=== PATIENT | female | born 1985 | race Two or more races ===

== ENCOUNTER 2016-12-05 06:25 | Inpatient (IN) | payer BC ==
[~2016-12-05 06:25] MED LIST: Citric Acid/Sodium Citrate Solution 30 ML Cup PO ONE; Lactated Ringers 1,000 ML IV SCH; Metoclopramide 10 MG/2 ML SDV IVPUSH ONE; Sodium Chloride 0.9% 10 ML Syringe FLUSH PRN
[2016-12-05] MEDS ORDERED: Diphtheria,Pertussis(Acell),Tetanus Vaccine 0.5 ML SDV inactive IM ONE (06:46)
[2016-12-05] MEDS ORDERED: Bupivacaine 0.5% 30 ML SDV ONE (06:47)
[2016-12-05] MEDS ORDERED: Morphine PF 10 MG/10 ML SDV ONE (07:02)
--- NOTE | 2016-12-05 07:16 | PCM.PREANE ---
Preanesthetic Assessment - ANESTHESIA/TRANSFUSION/FAMILY HX Anesthesia/Transfusion History: No Prior Transfusion(s), Prior Anesthesia (no problems ) - REVIEW OF SYSTEMS Constitutional: Reports: no symptoms CARVER HAND: Reports: no symptoms Respiratory: Reports: no symptoms Cardiovascular: Reports: no symptoms GI: Reports: vomiting (during , prescribed medication ) Other: Reports: none - PHYSICAL ASSESSMENT HR: 92 O2 Sat by Pulse Oximetry: 100 BP: 114/71 Temp: 36.6 C Vital Signs: Last Vital Signs Temp 36.6 C 12/05/16 06:43 Pulse 92 12/05/16 06:43 Resp BP 114/71 12/05/16 06:43 Pulse Ox 100 12/05/16 06:43 Height: 1.57 m Weight: 75.432 kg NPO Status Date: 12/04/16 NPO Status Time: 19:00 ASA Class: 2 Mental Status: alert & oriented x3 Airway Class: Mallampati = 1 Dentition: Reports: normal dentition Thyro-Mental Finger Breadths: 3 Mouth Opening Finger Breadths: 5 ROM/Head Extension: full Respiratory Status: lungs clear to auscultation bilaterally Cardiovascular Status: regular rate & rhythm, normal S1, S2, no murmur, blood pressure WNL - LAB Values: Laboratory Last Values WBC 9.72 K/mm3 (3.98-10.04) 12/05/16 06:46 RBC 4.34 M/mm3 (3.98-5.22) 12/05/16 06:46 Hgb 11.8 gm/L (11.2-15.7) 12/05/16 06:46 Hct 35.5 % (34.1-44.9) 12/05/16 06:46 MCV 81.8 fl (79.4-94.8) 12/05/16 06:46 MCH 27.2 pg (25.6-32.2) 12/05/16 06:46 MCHC 33.2 g/dl (32.2-35.5) 12/05/16 06:46 RDW Std Deviation 42.4 fL (36.4-46.3) 12/05/16 06:46 Plt Count 287 K/mm3 (182-369) 12/05/16 06:46 MPV 10.4 fl (9.4-12.3) 12/05/16 06:46 Neut % (Auto) 65.6 % (34.0-71.1) 12/05/16 06:46 Lymph % (Auto) 25.5 % (19.3-51.7) 12/05/16 06:46 Reynolds % (Auto) 7.6 % (4.7-12.5) 12/05/16 06:46 Eos % (Auto) 0.8 (0.7-5.8) 12/05/16 06:46 Baso % (Auto) 0.2 % (0.1-1.2) 12/05/16 06:46 Neut # 6.37 K/mm3 (1.56-6.13) H 12/05/16 06:46 Lymph # 2.48 K/mm3 (1.18-3.74) 12/05/16 06:46 Reynolds # 0.74 K/mm3 (0.24-0.36) H 12/05/16 06:46 Eos # 0.08 K/mm3 (0.04-0.36) 12/05/16 06:46 Baso # 0.02 K/mm3 (0.01-0.08) 12/05/16 06:46 - ALLERGIES Allergies/Adverse Reactions: Allergies Allergy/AdvReac Type Severity Reaction Status Date / Time No Known Allergies Allergy Verified 12/04/16 21:10 - BLOOD Blood Available: Yes Product(s) Available: PRBC - ANESTHESIA PLAN Preop Beta Vickie: No Anesthesia Type Planned: spinal - ACKNOWLEDGEMENTS Pt an appropriate candidate for the planned anesthesia: Yes Alternatives and risks of anesthesia discussed w pt/guardian: Yes Pt/Guardian understands and agree with anesthesia plan: Yes PreAnesthesia Questionnaire HEENT History: Reports: None Cardiovascular History: Reports: None Respiratory History: Reports: None Gastrointestinal History: Reports: GERD Genitourinary History: Reports: None : 2 Para: 1 Musculoskeletal History: Reports: None Neurological History: Reports: None Endocrine/Metabolic History: Reports: None Hematologic History: Reports: None Immunologic History: Reports: None - SUBSTANCE USE Smoking Status *Q: Never Smoker Recreational Drug Use History: No - HOME MEDS Home Medications: Home Meds PNV95/Ferrous Fumarate/FA [ Tablet] 1 each PO DAILY 12/05/16 [History] - CURRENT (IN HOUSE) MEDS Current Meds: Current Medications Lactated Ringer's (Ringers, Lactated) 1,000 mls @ 125 mls/hr IV ASDIRECTED [facility] Last Admin: 12/05/16 06:57 Dose: 125 mls/hr Oxytocin 20 unit/ Lactated (Ringer's) 1,002 mls @ 500 mls/hr IV ASDIRECTED [facility] PRN Reason: Protocol Cefazolin Sodium/Dextrose 2 gm (/ Premix) 50 mls @ 100 mls/hr IV ONETIME ONE Stop: 12/05/16 07:59 Sodium Chloride (Saline Flush) 10 ml FLUSH ASDIRECTED PRN PRN Reason: Keep Vein Open Discontinued Medications Bupivacaine HCl (Marcaine 0.5%) Confirm Administered Dose 30 ml .ROUTE .STK-MED ONE Stop: 12/05/16 06:48 Citric Acid/Sodium Citrate (Bicitra Solution) 30 ml PO ONETIME ONE Stop: 12/05/16 06:01 Last Admin: 12/05/16 06:57 Dose: 30 ml Diphtheria/Tetanus/Acell Pertussis (Boostrix) 0.5 ml IM .ONCE ONE Stop: 12/05/16 06:47 Metoclopramide HCl (Reglan) 10 mg IVPUSH ONETIME ONE Stop: 12/05/16 06:01 Last Admin: 12/05/16 06:57 Dose: 10 mg Morphine Sulfate (Duramorph Pf) Confirm Administered Dose 10 mg .ROUTE .STK-MED ONE Stop: 12/05/16 07:03
--- NOTE | 2016-12-05 07:16 | PCM.LDHP ---
L&D History of Present Illness - General Date of Service: 12/05/16 Admit Problem/Dx: Patient Status Order with Admit Dx/Problem 12/05/16 05:30 Patient Status [ADT] Routine Patient Status: Admit to Inpatient Admission Diagnosis/Problem: section Reason for Admit: Scheduled repeat Section Nurse Unit Type: Labor and Delivery Admitting Physician: Koby Gunter Attending Physician: Koby Gunter Admission Diagnosis/Problem Admission Diagnosis/Problem section Source of Information: Patient History Limitations: Reports: No limitations - History of Present Illness Introduction:: 31 y/o LISE 12/10/2016 at EGA 39w2d EGA GBS positive for repeat CS scheduled for Sunday12/05/2016. See record Pain Score: 0 Improves with: Reports: None Worsens with: Reports: None Associated Symptoms: Reports: N - Related Data Allergies/Adverse Reactions: Allergies Allergy/AdvReac Type Severity Reaction Status Date / Time No Known Allergies Allergy Verified 12/04/16 21:10 Home Medications: Home Meds PNV95/Ferrous Fumarate/FA [ Tablet] 1 each PO DAILY 12/05/16 [History] Past Medical History : 2 Para: 1 (1001) LMP (Approximate): Social & Family History - Tobacco Use Smoking Status *Q: Never Smoker - Caffeine Use Caffeine Use: Reports: None - Recreational Drug Use Recreational Drug Use: No H&P Review of Systems - Review of Systems: Review Of Systems: See Below General: Reports: no symptoms HEENT: Reports: no symptoms Pulmonary: Reports: no symptoms Cardiovascular: Reports: no symptoms Gastrointestinal: Reports: No symptoms Genitourinary: Reports: no symptoms Musculoskeletal: Reports: no symptoms Skin: Reports: no symptoms Psychiatric: Reports: no symptoms Neurological: Reports: no symptoms Hematologic/Lymphatic: Reports: no symptoms Immunologic: Reports: no symptoms L&D Exam - Exam Exam: See Below - Vital Signs Vital Signs: Last Vital Signs Temp 97.9 F 12/05/16 06:43 Pulse 92 12/05/16 06:43 Resp BP 114/71 12/05/16 06:43 Pulse Ox 100 12/05/16 06:43 Weight: 166 lb 4.8 oz - Exam General: alert, oriented HEENT: Mucosa moist & pink Neck: supple, trachea midline Lungs: Clear to auscultation, Normal respiratory effort Cardiovascular: regular rate, regular rhythm Abdomen: normal bowel sounds, soft Genitourinary: Normal external exam Extremities: normal inspection Skin: warm, dry, intact Neurological: reflexes equal bilateral Psychiatric: alert, normal affect, normal mood - Patient Data Lab Results last 24 hrs: Laboratory Results - last 24 hr 12/05/16 Range/Units 06:46 WBC 9.72 (3.98-10.04) K/mm3 RBC 4.34 (3.98-5.22) M/mm3 Hgb 11.8 (11.2-15.7) gm/L Hct 35.5 (34.1-44.9) % MCV 81.8 (79.4-94.8) fl MCH 27.2 (25.6-32.2) pg MCHC 33.2 (32.2-35.5) g/dl RDW Std Deviation 42.4 (36.4-46.3) fL Plt Count 287 (182-369) K/mm3 MPV 10.4 (9.4-12.3) fl Neut % (Auto) 65.6 (34.0-71.1) % Lymph % (Auto) 25.5 (19.3-51.7) % Glades % (Auto) 7.6 (4.7-12.5) % Eos % (Auto) 0.8 (0.7-5.8) Baso % (Auto) 0.2 (0.1-1.2) % Neut # 6.37 H (1.56-6.13) K/mm3 Lymph # 2.48 (1.18-3.74) K/mm3 Glades # 0.74 H (0.24-0.36) K/mm3 Eos # 0.08 (0.04-0.36) K/mm3 Baso # 0.02 (0.01-0.08) K/mm3 Result Diagrams: 12/05/16 06:46 - Problem List (1) 39 weeks gestation of SNOMED Code(s): 77174912 ICD Code: Z3A.39 - 39 WEEKS GESTATION OF Status: Acute Current Visit: Yes (2) Encounter for maternal care for low transverse scar from previous delivery SNOMED Code(s): 958783502, 124208443 ICD Code: O34.211 - MATERN CARE FOR LOW TRANSVERSE SCAR FROM PREV DEL Status: Acute Current Visit: Yes (3) Carrier of group B Streptococcus SNOMED Code(s): 2249981012499 ICD Code: Z22.330 - CARRIER OF GROUP B STREPTOCOCCUS Status: Acute Current Visit: Yes Problem List Initiated/Reviewed/Updated: No Orders Last 24hrs: Active Orders 24 hr Category Date Time Status Patient Status [ADT] Routine ADT 12/05/16 05:30 Active Communication Order [RC] ROUTINE Care 12/05/16 05:30 Active Heart Tones [RC] PER UNIT ROUTINE Care 12/05/16 05:30 Active Peripheral IV Care [RC] Q2HR Care 12/05/16 05:30 Active Vaccines to be Administered [RC] PER UNIT ROUTINE Care 12/05/16 06:46 Active TYPE AND SCREEN [BBK] Timed Lab 12/05/16 06:46 Received Lactated Ringers [Ringers, Lactated] 1,000 ml Med 12/05/16 05:30 Active IV ASDIRECTED Oxytocin [Pitocin] 20 unit Med 12/05/16 07:30 Active Lactated Ringers [Ringers, Lactated] 1,000 ml IV ASDIRECTED Sodium Chloride 0.9% [Saline Flush] Med 12/05/16 05:30 Active 10 ml FLUSH ASDIRECTED PRN ceFAZolin [Ancef] 2 gm Med 12/05/16 07:30 Active Premix Bag 1 bag IV ONETIME Peripheral IV Insertion Adult [OM.PC] Routine Oth 12/05/16 05:30 Ordered Schedule Procedure [COMM] Per Unit Routine Oth 12/05/16 05:30 Ordered Resuscitation Status Routine Resus Stat 12/04/16 21:10 Ordered Medication Orders Lactated Ringer's (Ringers, Lactated) 1,000 mls @ 125 mls/hr IV ASDIRECTED [facility] Last Admin: 12/05/16 06:57 Dose: 125 mls/hr Oxytocin 20 unit/ Lactated (Ringer's) 1,002 mls @ 500 mls/hr IV ASDIRECTED [facility] PRN Reason: Protocol Cefazolin Sodium/Dextrose 2 gm (/ Premix) 50 mls @ 100 mls/hr IV ONETIME ONE Stop: 12/05/16 07:59 Sodium Chloride (Saline Flush) 10 ml FLUSH ASDIRECTED PRN PRN Reason: Keep Vein Open Assessment/Plan Comment:: Plan repeat CS
[2016-12-05] MEDS ORDERED: ceFAZolin 2 GM in Premix Bag 1 BAG IV ONE (07:30)
[2016-12-05] MEDS ORDERED: fentaNYL 100 MCG/2 ML SDV ONE (08:12)
[2016-12-05] MEDS ORDERED: Lactated Ringers 1,000 ML ONE ×2 (08:33→08:34)
[2016-12-05] MEDS ORDERED: Oxytocin 10 Units/1 ML SDV ONE ×2 (08:34)
[2016-12-05] MEDS ORDERED: Ketorolac 30 MG/ML SDV ONE (08:40)
--- NOTE | 2016-12-05 08:40 | PCM.OPNOTE ---
- General Post-Op/Procedure Note Date of Surgery/Procedure: 12/05/16 Operative Procedure(s): Repeat section Pre Op Diagnosis: 39 weeks gestation, previous section, group B strep positive Post-Op Diagnosis: Same Anesthesia Technique: Spinal Primary Surgeon: Koby Gunter Secondary Surgeon: Cali Lin Anesthesia Provider: Coral Reece Fluid Replacement, Intraop: 1,500 Output, Urine Amount: 125 EBL in mLs: 500 Drain/Tube Comments:: Ross Complications: None Condition: Good Free Text/Narrative:: Patient was transported to operating room #1, placed under spinal anesthesia in the supine position with wedge under the right hip and right flank. Prepared and draped in sterile fashion. Timeout performed confirming name, date of , and procedure as section. Patient had SCDs in place. Packing prior surgery. Ancef 2 g intravenously prior to surgery. Level of anesthesia was confirmed and 20 mL of 0.5% Marcaine injected in the area of the planned incision. Incision made in the area of the old transverse incision from her previous section. Carried sharp section to into the anterior fascia. Peritoneal cavity was entered without difficulty. Bladder flap created pushed caudad and a low segment transverse performed, delivering a male live born at 0803 hours on daily , Apgars 8/9. At one and 5 minutes, weight 8 pounds, 13, Dr. Lopes . Care Navigator in attendance, and cared for the . Cord blood collected from three-vessel cord placenta removed manually, and the cavity inspected, and remnants of membranes removed. Sponge, needle, pack, and splint sharp count correct, times one. The uterine cavity, closed with 2 layers, first layer running, locking suture of 0 Monocryl. Second layer are long, became suture of 0 Monocryl. Hemostasis was normal. Both tubes and ovaries normal. Clots cleaned from the gutters and cul-de-sac. Uterus replaced into the abdominal cavity. Sponge, needle, pack, and splint sharp count correct, x2 in the abdominal cavity was closed #1 PDS for the anterior fascia. Multiple, interrupted 0 Monocryl sutures utilized to approximate the subcutaneous tissue. After irrigation was performed, and the skin was closed with 3-0 Monocryl. Ramirez needle, subcuticular suture and Preneo Dermabond applied. Clots cleaned from the vagina, and patient transported post anesthesia care unit in satisfactory condition. No blood transfusion, required
[2016-12-05] MEDS ORDERED: diphenhydrAMINE 50 MG/ML SDV IVPUSH PRN ×2 (08:51→10:12)
[2016-12-05] MEDS ORDERED: Ondansetron 4 MG/2 ML SDV IVPUSH PRN (08:51)
[2016-12-05] MEDS ORDERED: Meperidine PF 50 MG/ML Syringe IVPUSH PRN (08:51)
--- NOTE | 2016-12-05 08:54 | PCM.POSTAN ---
POST ANESTHESIA ASSESSMENT - MENTAL STATUS Mental Status: alert - VITAL SIGNS Pulse Rate: 78 SaO2: 98 Resp Rate: 21 Blood Pressure: 96/49 Temperature: 99.1 C - RESPIRATORY Respiratory Status: respiratory rate WNL, airway patent, O2 saturation stable - CARDIOVASCULAR CV Status: pulse rate WNL, blood pressure stable - GASTROINTESTINAL GI Status: no symptoms - PAIN Pain Score: 0 (not complaining of any pain when asked ) - POST OP HYDRATION Hydration Status: adequate & stable
[2016-12-05] MEDS ORDERED: Witch Hazel Medicated Pads 100/Jar TOP PRN (10:12)
[2016-12-05] MEDS ORDERED: Docusate Sodium 100 MG Cap PO PRN (10:12)
[2016-12-05] MEDS ORDERED: Naloxone 0.4 MG/ML SDV IVPUSH PRN (10:12)
[2016-12-05] MEDS ORDERED: Lanolin 100% Cream 7 GM Tube TOP PRN (10:12)
[2016-12-05] MEDS ORDERED: Acetaminophen 325 MG Tab PO PRN (10:12)
[2016-12-05] MEDS ORDERED: Ondansetron 4 MG Tab.DIS PO PRN (10:12)
[2016-12-05] MEDS ORDERED: ePHEDrine 50 MG/ML SDV IVPUSH PRN (10:12)
[2016-12-05] MEDS ORDERED: Dextrose 5%-Lactated Ringers 1,000 ML IV SCH (10:12)
[2016-12-05] MEDS ORDERED: Sodium Chloride 0.9% 10 ML Syringe FLUSH PRN (10:12)
[2016-12-05] MEDS ORDERED: Ondansetron 4 MG/2 ML SDV IV PRN (10:12)
[2016-12-05] MEDS: Acetaminophen/oxyCODONE 325-5 MG Tab PO PRN ×2 (11:06→20:14)
[2016-12-05] MEDS ORDERED: Misoprostol 200 MCG Tab PO ONE (11:39)
[2016-12-05] MEDS ORDERED: Misoprostol 200 MCG Tab ONE (11:40)
--- NOTE | 2016-12-05 12:06 | PCM.SN ---
- Free Text/Narrative Note: Bleeding increased and prescribed Cytotec 200 mcg x2 buccal. Bleeding better. Percocet helped with pain Vitals stable.
[2016-12-05] MEDS: Dextrose 5%-0.45% NaCl 1,000 ML IV SCH ×2 (15:58→21:18)
[2016-12-05] MEDS: Ketorolac 30 MG/ML SDV IVPUSH SCH ×2 (15:59→21:19)
[2016-12-06] MEDS: Ketorolac 30 MG/ML SDV IVPUSH SCH (03:12)
[2016-12-06] MEDS: Dextrose 5%-0.45% NaCl 1,000 ML IV SCH (04:46)
[2016-12-06] MEDS: Acetaminophen/oxyCODONE 325-5 MG Tab PO PRN ×3 (06:15→20:26)
--- NOTE | 2016-12-06 08:03 | PCM48HPAN ---
Post Anesthesia Note - EVALUATION WITHIN 48HRS OF ANESTHETIC Vital Signs in Normal Range: Yes Patient Participated in Evaluation: No (patient sleeping, talked with S/O and RN ) Respiratory Function Stable: Yes Airway Patent: Yes Cardiovascular Function Stable: Yes Hydration Status Stable: Yes Pain Control Satisfactory: Yes Nausea and Vomiting Control Satisfactory: Yes Mental Status Recovered: Yes - COMMENTS/OBSERVATIONS Free Text/Narrative:: patient non-vietnamese speaking
--- NOTE | 2016-12-06 08:43 | PCM.PN ---
- General Info Date of Service: 12/06/16 Functional Status: Reports: pain controlled - Review of Systems General: Reports: no symptoms HEENT: Reports: no symptoms Pulmonary: Reports: no symptoms Cardiovascular: Reports: no symptoms Gastrointestinal: Reports: No symptoms Genitourinary: Reports: no symptoms Musculoskeletal: Reports: no symptoms Skin: Reports: no symptoms Neurological: Reports: no symptoms Psychiatric: Reports: no symptoms - Patient Data Vitals - most recent: Last Vital Signs Temp 98.6 F 12/06/16 08:03 Pulse 68 12/06/16 08:03 Resp 16 12/06/16 08:03 BP 90/54 L 12/06/16 08:03 Pulse Ox 97 12/06/16 08:03 Weight - most recent: 166 lb 4.8 oz I&O - last 24 hours: Intake & Output 12/05/16 12/06/16 12/06/16 22:59 06:59 14:59 Intake Total 1060 2850 Output Total 800 900 Balance 260 1950 Lab Results last 24 hrs: Laboratory Results - last 24 hr 12/06/16 Range/Units 06:09 WBC 9.22 (3.98-10.04) K/mm3 RBC 2.96 L (3.98-5.22) M/mm3 Hgb 8.1 L (11.2-15.7) gm/L Hct 24.9 L (34.1-44.9) % MCV 84.1 (79.4-94.8) fl MCH 27.4 (25.6-32.2) pg MCHC 32.5 (32.2-35.5) g/dl RDW Std Deviation 42.5 (36.4-46.3) fL Plt Count 229 (182-369) K/mm3 MPV 9.8 (9.4-12.3) fl Neut % (Auto) 63.5 (34.0-71.1) % Lymph % (Auto) 26.0 (19.3-51.7) % Turner % (Auto) 8.8 (4.7-12.5) % Eos % (Auto) 1.3 (0.7-5.8) Baso % (Auto) 0.2 (0.1-1.2) % Neut # 5.85 (1.56-6.13) K/mm3 Lymph # 2.40 (1.18-3.74) K/mm3 Turner # 0.81 H (0.24-0.36) K/mm3 Eos # 0.12 (0.04-0.36) K/mm3 Baso # 0.02 (0.01-0.08) K/mm3 Med Orders - Current: Current Medications Acetaminophen (Tylenol) 650 mg PO Q4H PRN PRN Reason: mild pain or fever Diphenhydramine HCl (Benadryl) 25 mg IVPUSH Q6H PRN PRN Reason: Itching or Nausea Docusate Sodium (Colace) 100 mg PO Q12H PRN PRN Reason: Constipation Emollient Ointment (Lansinoh Hpa) 0 gm TOP ASDIRECTED PRN PRN Reason: Sore Nipples Ephedrine Sulfate (Ephedrine Sulfate) 5 mg IVPUSH SEECOMMENT PRN PRN Reason: Other Dextrose/Sodium Chloride (Dextrose 5%-1/2 Ns) 1,000 mls @ 125 mls/hr IV ASDIRECTED [facility] Last Admin: 12/06/16 04:46 Dose: 125 mls/hr Ibuprofen (Motrin) 600 mg PO Q6H PRN PRN Reason: mild pain or fever Meperidine HCl (Demerol) 12.5 mg IVPUSH ONETIME PRN PRN Reason: shivering Stop: 12/06/16 08:52 Naloxone HCl (Narcan) 0.1 mg IVPUSH SEECOMMENT PRN PRN Reason: Respiratory Depression Ondansetron HCl (Zofran) 4 mg IV Q8H PRN PRN Reason: Nausea/Vomiting Last Admin: 12/05/16 13:07 Dose: 4 mg Ondansetron HCl (Zofran Odt) 4 mg PO Q4H PRN PRN Reason: Nausea/Vomiting Oxycodone/Acetaminophen (Percocet 325-5 Mg) 2 tab PO Q4H PRN PRN Reason: Pain (moderate 4-6) Last Admin: 12/06/16 06:15 Dose: 2 tab Sodium Chloride (Saline Flush) 10 ml FLUSH ASDIRECTED PRN PRN Reason: Keep Vein Open Witch Elvi (Tucks) 1 pad TOP ASDIRECTED PRN PRN Reason: Perineal Comfort Measure Discontinued Medications Bupivacaine HCl (Marcaine 0.5%) Confirm Administered Dose 30 ml .ROUTE .[facility] ONE Stop: 12/05/16 06:48 Last Admin: 12/05/16 07:59 Dose: 20 ml Citric Acid/Sodium Citrate (Bicitra Solution) 30 ml PO ONETIME ONE Stop: 12/05/16 06:01 Last Admin: 12/05/16 06:57 Dose: 30 ml Diphenhydramine HCl (Benadryl) 25 mg IVPUSH Q6H PRN PRN Reason: pruritis Diphtheria/Tetanus/Acell Pertussis (Boostrix) 0.5 ml IM .ONCE ONE Stop: 12/05/16 06:47 Fentanyl (Sublimaze) Confirm Administered Dose 100 mcg .ROUTE .[facility] ONE Stop: 12/05/16 08:13 Lactated Ringer's (Ringers, Lactated) 1,000 mls [facility] Admin: 12/05/16 06:57 Dose: 125 mls/hr Oxytocin 20 unit/ Lactated (Ringer's) 1,002 mls [facility] PRN Reason: Protocol Cefazolin Sodium/Dextrose 2 gm (/ Premix) 50 mls @ 100 mls/hr IV ONETIME ONE Stop: 12/05/16 07:59 Last Admin: 12/06/16 08:19 Dose: Not Given Lactated Ringer's (Ringers, Lactated) Confirm Administered Dose 1,000 mls @ as directed .ROUTE .[facility] ONE Stop: 12/05/16 08:34 Lactated Ringer's (Ringers, Lactated) Confirm Administered Dose 1,000 mls @ as directed .ROUTE .[facility]-MED ONE Stop: 12/05/16 08:35 Dextrose/Lactated Ringer's (Dextrose 5%-Lactated Ringers) 1,000 mls @ 125 mls/ hr IV ASDIRECTED [facility] Stop: 12/05/16 18:11 Last Admin: 12/05/16 11:13 Dose: 125 mls/hr Ketorolac Tromethamine (Toradol) Confirm Administered Dose 30 mg .ROUTE .[facility]- MED ONE Stop: 12/05/16 08:41 Ketorolac Tromethamine (Toradol) 30 mg IVPUSH Q6H [facility] Stop: 12/06/16 03:01 Last Admin: 12/06/16 03:12 Dose: 30 mg Metoclopramide HCl (Reglan) 10 mg IVPUSH ONETIME ONE Stop: 12/05/16 06:01 Last Admin: 12/05/16 06:57 Dose: 10 mg Misoprostol (Cytotec) 400 mcg PO ONETIME ONE Stop: 12/05/16 11:40 Last Admin: 12/05/16 11:44 Dose: 400 mcg Misoprostol (Cytotec) Confirm Administered Dose 400 mcg .ROUTE .STK-MED ONE Stop: 12/05/16 11:41 Last Admin: 12/05/16 13:08 Dose: Not Given Morphine Sulfate (Duramorph Pf) Confirm Administered Dose 10 mg .ROUTE .STK-MED ONE Stop: 12/05/16 07:03 Ondansetron HCl (Zofran) 4 mg IVPUSH ONETIME PRN PRN Reason: Nausea/Vomiting Oxytocin (Pitocin) Confirm Administered Dose 10 unit .ROUTE .STK-MED ONE Stop: 12/05/16 08:35 Oxytocin (Pitocin) Confirm Administered Dose 10 unit .ROUTE .STK-MED ONE Stop: 12/05/16 08:35 Sodium Chloride (Saline Flush) 10 ml FLUSH ASDIRECTED PRN PRN Reason: Keep Vein Open - Exam General: alert, oriented HEENT: Pupils equal, Pupils reactive, Mucous membr. moist/pink Neck: supple Lungs: Clear to auscultation, Normal respiratory effort Cardiovascular: regular rate, regular rhythm Abdomen: bowel sounds present, soft, no tenderness, no distension (Female) Exam: Normal external exam, Normal speculum exam, Normal bimanual exam Extremities: no edema Skin: warm, dry, intact Wound/Incisions: healing well Neurological: no new focal deficit Psy/Mental Status: alert, normal affect, normal mood - Problem List & Annotations (1) 39 weeks gestation of SNOMED Code(s): 14258132 Code(s): Z3A.39 - 39 WEEKS GESTATION OF Status: Acute Current Visit: Yes (2) Encounter for maternal care for low transverse scar from previous delivery SNOMED Code(s): 060932641, 572507178 Code(s): O34.211 - MATERN CARE FOR LOW TRANSVERSE SCAR FROM PREV DEL Status: Acute Current Visit: Yes (3) Carrier of group B Streptococcus SNOMED Code(s): 5286226883828 Code(s): Z22.330 - CARRIER OF GROUP B STREPTOCOCCUS Status: Acute Current Visit: Yes - Problem List Review Problem List Initiated/Reviewed/Updated: No - My Orders Last 24 Hours: My Active Orders 12/05/16 10:12 Ambulate [RC] PER UNIT ROUTINE Antiembolic Devices [RC] PER UNIT ROUTINE Communication Order [RC] PER UNIT ROUTINE Intake and Output [RC] QSHIFT May Shower [RC] PER UNIT ROUTINE Notify Provider Intake and Out [RC] ASDIRECTED RT Incentive Spirometry [RC] Q2HWA Vital Signs [RC] 04,12,20 Acetaminophen [Tylenol] 650 mg PO Q4H PRN Acetaminophen/oxyCODONE [Percocet 325-5 MG] 2 tab PO Q4H PRN Dextrose 5%-0.45% NaCl [Dextrose 5%-1/2 NS] 1,000 ml IV ASDIRECTED Docusate Sodium [Colace] 100 mg PO Q12H PRN Lanolin [Lansinoh HPA] See Dose Instructions TOP ASDIRECTED PRN Naloxone [Narcan] 0.1 mg IVPUSH SEECOMMENT PRN Ondansetron [Zofran ODT] 4 mg PO Q4H PRN Ondansetron [Zofran] 4 mg IV Q8H PRN Sodium Chloride 0.9% [Saline Flush] 10 ml FLUSH ASDIRECTED PRN Witch Elvi [Tucks] 1 pad TOP ASDIRECTED PRN diphenhydrAMINE [Benadryl] 25 mg IVPUSH Q6H PRN ePHEDrine [ePHEDrine Sulfate] 5 mg IVPUSH SEECOMMENT PRN Abdominal Binder [OM.PC] Per Unit Routine Assess Lochia [WOMSER] Per Unit Routine Assess Uterine Involution [WOMSER] Per Unit Routine Breast Pump [WOMSER] Per Unit Routine Convert IV to Saline Lock [OM.PC] Routine Medication Administration Instruction [OM.PC] Routine Peripheral IV Discontinue [OM.PC] Routine Saline Lock Insert [OM.PC] Routine Sequential Compression Device [OM.PC] Per Unit Routine 12/05/16 20:20 Oxygen Therapy Adult [Oxygen Therapy] [RC] ASDIRECTED 12/05/16 Dinner Regular Diet [DIET] 12/05/16 Lunch Clear Liquid Diet [DIET] 12/06/16 08:41 Urinary Catheter Removal [RC] Per Unit Routine 12/06/16 09:00 Ibuprofen [Motrin] 600 mg PO Q6H PRN - Assessment Assessment:: BP "low" but reviewing records, patient BP ran in "low" areas at times and patient asymptomatic. Patient is presently asymptomatic and will probably go home tomorrow. - Plan Plan:: Plan repeat CS
[2016-12-06] MEDS: Ibuprofen 600 MG Tab PO PRN ×2 (09:12→17:39)
[2016-12-07] MEDS: Ibuprofen 600 MG Tab PO PRN (00:35)
[2016-12-07] MEDS: Acetaminophen/oxyCODONE 325-5 MG Tab PO PRN (07:49)
--- NOTE | 2016-12-07 09:36 | PCM.DCSUM1 ---
Discharge Summary - Hospital Course Free Text/Narrative:: [facility] Post-Op/Procedure Note Patient Name: TAMIA BARRIENTOS Date of : 85 Patient Status: Inpatient Attending Provider: Koby Gunter Date: 12/05/16 08:36 Initialization Date: 12/05/16 08:36 - General Post-Op/Procedure Note Date of Surgery/Procedure: 12/05/16 Operative Procedure(s): Repeat section Pre Op Diagnosis: 39 weeks gestation, previous section, group B strep positive Post-Op Diagnosis: Same Anesthesia Technique: Spinal Primary Surgeon: Koby Gunter Secondary Surgeon: Cali Lin Anesthesia Provider: Coral Reece Fluid Replacement, Intraop: 1,500 Output, Urine Amount: 125 EBL in mLs: 500 Drain/Tube Comments:: Ross Complications: None Condition: Good Free Text/Narrative:: Patient was transported to operating room #1, placed under spinal anesthesia in the supine position with wedge under the right hip and right flank. Prepared and draped in sterile fashion. Timeout performed confirming name, date of , and procedure as section. Patient had SCDs in place. Packing prior surgery. Ancef 2 g intravenously prior to surgery. Level of anesthesia was confirmed and 20 mL of 0.5% Marcaine injected in the area of the planned incision. Incision made in the area of the old transverse incision from her previous section. Carried sharp section to into the anterior fascia. Peritoneal cavity was entered without difficulty. Bladder flap created pushed caudad and a low segment transverse performed, delivering a male live born at 0803 hours on daily , Apgars 8/9. At one and 5 minutes, weight 8 pounds, 13, Dr. Lopes . Board Certified Orthodontist in attendance, and cared for the . Cord blood collected from three-vessel cord placenta removed manually, and the cavity inspected, and remnants of membranes removed. Sponge, needle, pack, and splint sharp count correct, times one. The uterine cavity, closed with 2 layers, first layer running, locking suture of 0 Monocryl. Second layer are long, became suture of 0 Monocryl. Hemostasis was normal. Both tubes and ovaries normal. Clots cleaned from the gutters and cul-de-sac. Uterus replaced into the abdominal cavity. Sponge, needle, pack, and splint sharp count correct, x2 in the abdominal cavity was closed #1 PDS for the anterior fascia. Multiple, interrupted 0 Monocryl sutures utilized to approximate the subcutaneous tissue. After irrigation was performed, and the skin was closed with 3-0 Monocryl. Ramirez needle, subcuticular suture and Preneo Dermabond applied. Clots cleaned from the vagina, and patient transported post anesthesia care unit in satisfactory condition. No blood transfusion, required HPI Initial Comments: [facility] Post-Op/Procedure Note Patient Name: TAMIA BARRIENTOS Date of : 85 Patient Status: Inpatient Attending Provider: Koby Gunter Date: 12/05/16 08:36 Initialization Date: 12/05/16 08:36 - General Post-Op/Procedure Note Date of Surgery/Procedure: 12/05/16 Operative Procedure(s): Repeat section Pre Op Diagnosis: 39 weeks gestation, previous section, group B strep positive Post-Op Diagnosis: Same Anesthesia Technique: Spinal Primary Surgeon: Koby Gunter Secondary Surgeon: Cali Lin Anesthesia Provider: Coral Reece Fluid Replacement, Intraop: 1,500 Output, Urine Amount: 125 EBL in mLs: 500 Drain/Tube Comments:: Ross Complications: None Condition: Good Free Text/Narrative:: Patient was transported to operating room #1, placed under spinal anesthesia in the supine position with wedge under the right hip and right flank. Prepared and draped in sterile fashion. Timeout performed confirming name, date of , and procedure as section. Patient had SCDs in place. Packing prior surgery. Ancef 2 g intravenously prior to surgery. Level of anesthesia was confirmed and 20 mL of 0.5% Marcaine injected in the area of the planned incision. Incision made in the area of the old transverse incision from her previous section. Carried sharp section to into the anterior fascia. Peritoneal cavity was entered without difficulty. Bladder flap created pushed caudad and a low segment transverse performed, delivering a male live born at 0803 hours on daily , Apgars 8/9. At one and 5 minutes, weight 8 pounds, 13, Dr. Lopes . Board Certified Orthodontist in attendance, and cared for the . Cord blood collected from three-vessel cord placenta removed manually, and the cavity inspected, and remnants of membranes removed. Sponge, needle, pack, and splint sharp count correct, times one. The uterine cavity, closed with 2 layers, first layer running, locking suture of 0 Monocryl. Second layer are long, became suture of 0 Monocryl. Hemostasis was normal. Both tubes and ovaries normal. Clots cleaned from the gutters and cul-de-sac. Uterus replaced into the abdominal cavity. Sponge, needle, pack, and splint sharp count correct, x2 in the abdominal cavity was closed #1 PDS for the anterior fascia. Multiple, interrupted 0 Monocryl sutures utilized to approximate the subcutaneous tissue. After irrigation was performed, and the skin was closed with 3-0 Monocryl. Ramirez needle, subcuticular suture and Preneo Dermabond applied. Clots cleaned from the vagina, and patient transported post anesthesia care unit in satisfactory condition. No blood transfusion, required Brief History: [facility] . Post-Op/Procedure Note. Patient Name: Heidi BARRIENTOS Record Number: [id number]. Date of : 85Patient Status: Inpatient. Attending Provider: Koby Gunterount Number: [id number]. Date: 12/05/16 08:36Initialization Date: 04/16 08:36. - General Post-Op/Procedure Note. Date of Surgery/Procedure: 04/16. Operative Procedure(s): Repeat section. Pre Op Diagnosis: 39 weeks gestation, previous section, group B strep positive. Post-Op Diagnosis: Same. Anesthesia Technique: Spinal. Primary Surgeon: Koby Gunter. Secondary Surgeon: Cali Lin. Anesthesia Provider: Coral Reece. Fluid Replacement, Intraop: 1,500. Output, Urine Amount: 125. EBL in mLs: 500. Drain/Tube Comments:: Ross. Complications: None. Condition: Good. Free Text/Narrative:: Patient was transported to operating room #1, placed under spinal anesthesia in the supine position with wedge under the right hip and right flank. Prepared and draped in sterile fashion. Timeout performed confirming name, date of , and procedure as section. Patient had SCDs in place. Packing prior surgery. Ancef 2 g intravenously prior to surgery. Level of anesthesia was confirmed and 20 mL of 0.5% Marcaine injected in the area of the planned incision. Incision made in the area of the old transverse incision from her previous section. Carried sharp section to into the anterior fascia. Peritoneal cavity was entered without difficulty. Bladder flap created pushed caudad and a low segment transverse performed, delivering a male live born at 0803 hours on daily 3, Apgars 8/9. At one and 5 minutes, weight 8 pounds, 13, Dr. Lopes . Board Certified Orthodontist in attendance, and cared for the . Cord blood collected from three-vessel cord placenta removed manually, and the cavity inspected, and remnants of membranes removed. Sponge, needle, pack, and splint sharp count correct, times one. The uterine cavity, closed with 2 layers, first layer running, locking suture of 0 Monocryl. Second layer are long, became suture of 0 Monocryl. Hemostasis was normal. Both tubes and ovaries normal. Clots cleaned from the gutters and cul-de-sac. Uterus replaced into the abdominal cavity. Sponge, needle, pack, and splint sharp count correct, x2 in the abdominal cavity was closed #1 PDS for the anterior fascia. Multiple, interrupted 0 Monocryl sutures utilized to approximate the subcutaneous tissue. After irrigation was performed, and the skin was closed with 3-0 Monocryl. Ramirez needle, subcuticular suture and Preneo Dermabond applied. Clots cleaned from the vagina , and patient transported post anesthesia care unit in satisfactory condition. No blood transfusion, required - Discharge Data Discharge Date: 12/07/16 Discharge Disposition: Home, Self-Care 01 Condition: Good - Discharge Diagnosis/Problem(s) (1) 39 weeks gestation of SNOMED Code(s): 59183198 ICD Code: Z3A.39 - 39 WEEKS GESTATION OF Status: Acute Current Visit: Yes (2) Encounter for maternal care for low transverse scar from previous delivery SNOMED Code(s): 116340857, 366631582 ICD Code: O34.211 - MATERN CARE FOR LOW TRANSVERSE SCAR FROM PREV DEL Status: Acute Current Visit: Yes (3) Carrier of group B Streptococcus SNOMED Code(s): 7986226681503 ICD Code: Z22.330 - CARRIER OF GROUP B STREPTOCOCCUS Status: Acute Current Visit: Yes - Patient Summary/Data Operative Procedure(s) Performed: Repeat section Complications: none Consults: none Hospital Course: uneventful - Patient Instructions Diet: Heart Healthy Diet Driving: Do Not Drive (x4 weeks) Showering/Bathing: May Shower, No Tub Bathing/Swimming (x6 weeks) Wound/Incision Care: Keep Operative Site/Wound Site Clean and Dry Notify Provider of: Fever, Increased Pain, Swelling and Redness, Drainage, Nausea and/or Vomiting - Discharge Plan Home Medications: Home Meds PNV95/Ferrous Fumarate/FA [ Tablet] 1 each PO DAILY 12/05/16 [History] Acetaminophen [Tylenol] 650 mg PO Q6H PRN #0 tablet 12/07/16 [Rx] Acetaminophen/oxyCODONE [Percocet 325-5 MG] 1 - 2 tab PO Q6H PRN #30 tablet 06/17 [Rx] Docusate Sodium [Colace] 100 mg PO Q12H PRN #0 cap 12/07/16 [Rx] Ibuprofen [IJD: Ibuprofen] 600 mg PO Q6H PRN #0 tablet 12/07/16 [Rx] Patient Handouts: Delivery, Care After, Care After Delivery Referrals: Koby Gunter MD [Physician] - (6 weeks) - Discharge Summary/Plan Comment DC Time >30 min.: No - Patient Data Vitals - Most Recent: Last Vital Signs Temp 99.0 F 12/07/16 03:50 Pulse 64 12/07/16 03:50 Resp 16 12/07/16 03:50 BP 84/51 L 12/07/16 03:50 Pulse Ox 98 12/07/16 03:50 Weight - Most Recent: 166 lb 4.8 oz I&O - Last 24 hours: Intake & Output 12/06/16 12/07/16 12/07/16 22:59 06:59 14:59 Intake Total 240 1200 Balance 240 1200 Med Orders - Current: Current Medications Acetaminophen (Tylenol) 650 mg PO Q4H PRN PRN Reason: mild pain or fever Diphenhydramine HCl (Benadryl) 25 mg IVPUSH Q6H PRN PRN Reason: Itching or Nausea Docusate Sodium (Colace) 100 mg PO Q12H PRN PRN Reason: Constipation Emollient Ointment (Lansinoh Hpa) 0 gm TOP ASDIRECTED PRN PRN Reason: Sore Nipples Ephedrine Sulfate (Ephedrine Sulfate) 5 mg IVPUSH SEECOMMENT PRN PRN Reason: Other Dextrose/Sodium Chloride (Dextrose 5%-1/2 Ns) 1,000 mls @ 125 mls/hr IV ASDIRECTED TERESA Last Admin: 12/06/16 04:46 Dose: 125 mls/hr Ibuprofen (Motrin) 600 mg PO Q6H PRN PRN Reason: mild pain or fever Last Admin: 12/07/16 00:35 Dose: 600 mg Naloxone HCl (Narcan) 0.1 mg IVPUSH SEECOMMENT PRN PRN Reason: Respiratory Depression Ondansetron HCl (Zofran) 4 mg IV Q8H PRN PRN Reason: Nausea/Vomiting Last Admin: 12/05/16 13:07 Dose: 4 mg Ondansetron HCl (Zofran Odt) 4 mg PO Q4H PRN PRN Reason: Nausea/Vomiting Oxycodone/Acetaminophen (Percocet 325-5 Mg) 2 tab PO Q4H PRN PRN Reason: Pain (moderate 4-6) Last Admin: 12/07/16 07:49 Dose: 2 tab Sodium Chloride (Saline Flush) 10 ml FLUSH ASDIRECTED PRN PRN Reason: Keep Vein Open Adán Boles (Morris) 1 pad TOP ASDIRECTED PRN PRN Reason: Perineal Comfort Measure Discontinued Medications Bupivacaine HCl (Marcaine 0.5%) Confirm Administered Dose 30 ml .ROUTE .STK-MED ONE Stop: 12/05/16 06:48 Last Admin: 12/05/16 07:59 Dose: 20 ml Citric Acid/Sodium Citrate (Bicitra Solution) 30 ml PO ONETIME ONE Stop: 12/05/16 06:01 Last Admin: 12/05/16 06:57 Dose: 30 ml Diphenhydramine HCl (Benadryl) 25 mg IVPUSH Q6H PRN PRN Reason: pruritis Diphtheria/Tetanus/Acell Pertussis (Boostrix) 0.5 ml IM .ONCE ONE Stop: 12/05/16 06:47 Fentanyl (Sublimaze) Confirm Administered Dose 100 mcg .ROUTE .STK-MED ONE Stop: 12/05/16 08:13 Lactated Ringer's (Ringers, Lactated) 1,000 mls @ 125 mls/hr IV ASDIRECTED [facility] Last Admin: 12/05/16 06:57 Dose: 125 mls/hr Oxytocin 20 unit/ Lactated (Ringer's) 1,002 mls @ 500 mls/hr IV ASDIRECTED [facility] PRN Reason: Protocol Cefazolin Sodium/Dextrose 2 gm (/ Premix) 50 mls @ 100 mls/hr IV ONETIME ONE Stop: 12/05/16 07:59 Last Admin: 12/06/16 08:19 Dose: Not Given Lactated Ringer's (Ringers, Lactated) Confirm Administered Dose 1,000 mls @ as directed .ROUTE .STK-MED ONE Stop: 12/05/16 08:34 Lactated Ringer's (Ringers, Lactated) Confirm Administered Dose 1,000 mls @ as directed .ROUTE .STK-MED ONE Stop: 12/05/16 08:35 Dextrose/Lactated Ringer's (Dextrose 5%-Lactated Ringers) 1,000 mls @ 125 mls/ hr IV ASDIRECTED [facility] Stop: 12/05/16 18:11 Last Admin: 12/05/16 11:13 Dose: 125 mls/hr Ketorolac Tromethamine (Toradol) Confirm Administered Dose 30 mg .ROUTE .STK- MED ONE Stop: 12/05/16 08:41 Ketorolac Tromethamine (Toradol) 30 mg IVPUSH Q6H [facility] Stop: 12/06/16 03:01 Last Admin: 12/06/16 03:12 Dose: 30 mg Meperidine HCl (Demerol) 12.5 mg IVPUSH ONETIME PRN PRN Reason: shivering Stop: 12/06/16 08:52 Metoclopramide HCl (Reglan) 10 mg IVPUSH ONETIME ONE Stop: 12/05/16 06:01 Last Admin: 12/05/16 06:57 Dose: 10 mg Misoprostol (Cytotec) 400 mcg PO ONETIME ONE Stop: 12/05/16 11:40 Last Admin: 12/05/16 11:44 Dose: 400 mcg Misoprostol (Cytotec) Confirm Administered Dose 400 mcg .ROUTE .STK-MED ONE Stop: 12/05/16 11:41 Last Admin: 12/05/16 13:08 Dose: Not Given Morphine Sulfate (Duramorph Pf) Confirm Administered Dose 10 mg .ROUTE .STK-MED ONE Stop: 12/05/16 07:03 Ondansetron HCl (Zofran) 4 mg IVPUSH ONETIME PRN PRN Reason: Nausea/Vomiting Oxytocin (Pitocin) Confirm Administered Dose 10 unit .ROUTE .STK-MED ONE Stop: 12/05/16 08:35 Oxytocin (Pitocin) Confirm Administered Dose 10 unit .ROUTE .STK-MED ONE Stop: 12/05/16 08:35 Sodium Chloride (Saline Flush) 10 ml FLUSH ASDIRECTED PRN PRN Reason: Keep Vein Open *Q Meaningful Use (DIS) - VTE *Q VTE Criteria *Q: - Stroke *Q Stroke Criteria *Q: - AMI *Q AMI Criteria *Q:
== END 2016-12-07 11:05 | disposition home or self-care (01) | DRG 540 ==
LOC: JD.OB 06:25
PROVIDERS: ADMIT Obstetrics & Gynecology; ATTEND Obstetrics & Gynecology
PROC: 10D00Z1 Extraction of Products of Conception, Low, Open Approach (ICD-10-PCS; principal; 2016-12-05)
DX: O34.211 Maternal care for low transverse scar from previous cesarean delivery (principal); N85.8 Other specified noninflammatory disorders of uterus; O99.824 Streptococcus B carrier state complicating childbirth; Z3A.39 39 weeks gestation of pregnancy; Z37.0 Single live birth
CPT/HCPCS: 01961; 36415; 85025; 86850; 86900; 86901; 90715; 94762; A9270-GY; J1885; J2270; J2405; J2590; J2765; J3010; J7042; J7120

== ENCOUNTER 2021-10-21 11:13 | Emergency (ER) | payer SELFPAY ==
[2021-10-21 11:27] VITALS: BP 106/76; PULSE 70
[2021-10-21] MEDS ORDERED: Sodium Chloride 0.9% 10 ML Syringe FLUSH PRN (11:32)
== END 2021-10-21 14:16 | disposition home or self-care (01) ==
LOC: JD.ED 11:13
DX: O20.9 Hemorrhage in early pregnancy, unspecified (principal)
CPT/HCPCS: 36415; 76817; 76817-26; 84702; 85025; 86900; 86901; 99284-25

== ENCOUNTER 2022-08-10 05:36 | Inpatient (IN) | payer BC, OTHER ==
[~2022-08-10 05:36] MED LIST changes: -Citric Acid/Sodium Citrate Solution 30 ML Cup PO ONE; +Methylergonovine 0.2 MG/1 ML Amp IM PRN; -Metoclopramide 10 MG/2 ML SDV IVPUSH ONE; -Sodium Chloride 0.9% 10 ML Syringe FLUSH PRN
[2022-08-10] MEDS ORDERED: Metoclopramide 10 MG/2 ML SDV IVPUSH ONE ×2 (06:30)
[2022-08-10] MEDS ORDERED: Citric Acid/Sodium Citrate Solution 30 ML Cup PO ONE ×2 (06:30)
[2022-08-10] MEDS ORDERED: Phenylephrine HCl In 0.9% NaCl 1 MG/10 ML Vial ONE (06:59)
[2022-08-10] MEDS ORDERED: ceFAZolin 2 GM Vial ONE (06:59)
[2022-08-10] MEDS ORDERED: Dexmedetomidine 200 MCG/2 ML SDV ONE (07:00)
[2022-08-10] MEDS ORDERED: Bupivacaine 0.5% 30 ML SDV ONE (07:03)
[2022-08-10] MEDS ORDERED: diphenhydrAMINE 50 MG/ML SDV IVPUSH PRN ×2 (07:11→10:25)
[2022-08-10] MEDS ORDERED: Ondansetron 4 MG/2 ML SDV IVPUSH PRN (07:11)
[2022-08-10] MEDS ORDERED: fentaNYL 100 MCG/2 ML SDV IVPUSH PRN (07:11)
[2022-08-10] MEDS ORDERED: Meperidine 50 MG/ML Vial IVPUSH PRN (07:11)
[2022-08-10] MEDS ORDERED: Morphine PF 10 MG/10 ML SDV ONE (07:17)
[2022-08-10] MEDS ORDERED: fentaNYL 100 MCG/2 ML SDV ONE (07:17)
[2022-08-10] MEDS ORDERED: ceFAZolin 2 GM in Sodium Chloride 0.9% 50 ML IV ONE (07:30)
[2022-08-10] MEDS ORDERED: Oxytocin 10 Units/1 ML SDV ONE ×2 (08:24→08:32)
[2022-08-10] MEDS ORDERED: Ketorolac 30 MG/ML SDV ONE (08:48)
[2022-08-10] MEDS ORDERED: Lactated Ringers 1,000 ML ONE (08:50)
[2022-08-10] MEDS ORDERED: Acetaminophen/oxyCODONE 325-5 MG Tab PO PRN ×2 (10:25)
[2022-08-10] MEDS ORDERED: ePHEDrine 50 MG/ML SDV IVPUSH PRN (10:25)
[2022-08-10] MEDS ORDERED: Magnesium Hydroxide 400 MG/5 ML Susp 30 ML Cup PO PRN (10:25)
[2022-08-10] MEDS ORDERED: Dextrose 5%-Lactated Ringers 1,000 ML IV SCH (10:25)
[2022-08-10] MEDS ORDERED: Oxytocin/Lactated Ringers 10 UNIT/1,000 ML BAG IV SCH (10:25)
[2022-08-10] MEDS ORDERED: Naloxone 0.4 MG/ML SDV IVPUSH PRN (10:25)
[2022-08-10] MEDS ORDERED: Lactated Ringers 1,000 ML IV ONE (12:34)
[2022-08-10] MEDS: Ketorolac 30 MG/ML SDV IVPUSH SCH ×2 (15:17→20:42)
[2022-08-10] MEDS: Docusate Sodium 100 MG Cap PO SCH (21:12)
[2022-08-11] MEDS: Ketorolac 30 MG/ML SDV IVPUSH SCH (03:20)
[2022-08-11] MEDS: Docusate Sodium 100 MG Cap PO SCH (08:15)
[2022-08-11] MEDS ORDERED: Ibuprofen 600 MG Tab PO PRN (09:00)
[2022-08-11] MEDS ORDERED: Prenatal Multivitamin with Calcium/Folic Acid/Iron Tab PO SCH (09:00)
[2022-08-11 16:06] VITALS: BP 112/71; PULSE 74
== END 2022-08-11 15:00 | disposition home or self-care (01) | DRG 540 ==
LOC: JD.OB 05:36
PROVIDERS: ADMIT Obstetrics & Gynecology; ATTEND Obstetrics & Gynecology
PROC: 10D00Z1 Extraction of Products of Conception, Low, Open Approach (ICD-10-PCS; principal; 2022-08-10)
DX: O24.425 Gestational diabetes mellitus in childbirth, controlled by oral hypoglycemic drugs (principal); O99.824 Streptococcus B carrier state complicating childbirth; Z3A.39 39 weeks gestation of pregnancy; Z37.0 Single live birth
CPT/HCPCS: 01961; 36415; 59025; 85025; 86592; 86850; 86900; 86901; 94762; A9270-GY; J0690; J1885; J2274; J2405; J2590; J2765; J3010; J3490; J7120